=== PATIENT | female | born 1965 | race Caucasian/White ===

== ENCOUNTER 2017-05-31 20:18 | Emergency (ER) | payer OTHER, SELFPAY ==
[2017-05-31 20:38] VITALS: BP 128/70; PULSE 71; RESP 18; TEMP 36.1; O2SAT 95; BMI 41.4
--- NOTE | 2017-05-31 20:52 | HMH.EDUTC ---
[facility] [place] Disposition Clinical Impression: Headache Qualifiers: Headache type: other headache syndrome Qualified Code(s): G44.89 - Other headache syndrome Disposition: Home, Self-Care Condition on Discharge: Good Additional Instructions: Take over the counter Motrin and Tylenol as needed for pain If headache returns or worsens Follow up with family doctor If you began to have the worse headache of your life, go straight to ER Return if needed Referrals: Isabell Robertson [Primary Care Provider] - Time of Disposition: 21:03 Medical Decision Making Vital Signs: 05/31/17 20:38 Temperature 97 F L Temperature Source Temporal Artery Scan Pulse Rate [Right] 71 Respiratory Rate 18 Blood Pressure [Right Arm] 128/70 Blood Pressure Mean [Right Arm] 89 Blood Pressure Source [Right Arm] Automatic Cuff Blood Pressure Position [Right Arm] Sitting 02 Sat by Pulse Oximetry 95 Oxygen Delivery Method Room Air Orders (Tests/Meds): ED MEDICATIONS Discontinued Medications Generic Name Dose Route Start Last Admin Trade Name Freq PRN Reason Stop Dose Admin Ketorolac Tromethamine 60 mg 05/31/17 20:59 05/31/17 21:10 Toradol 60mg/2ml Vial IM 05/31/17 21:00 60 mg ONCE ONE Administration Metoclopramide HCl 10 mg 05/31/17 20:59 05/31/17 21:10 Metoclopramide 10mg Tablet PO 05/31/17 21:00 10 mg ONCE ONE Administration - Jordan Inquiry Pt receiving controlled substance: No Jordan was queried for this patient: No - Reevaluation(s) Time: 21:24 (Patient state that medicaiton helped with headache much better now rates headache a 3) [facility] [place] HPI - General Stated complaint: ANGEL, vomiting, diarrhea Mode of Arrival: Ambulatory Source of Information: Patient Limitations: No Limitations Description of Symptoms (Recalled from Triage Doc. by RN): HEADACHE, VOMITING HEENT Symptoms (Recalled from RN notes): No Resp Symptoms (Recalled from RN notes): No Skin Symptoms (Recalled from RN notes): No MS Symptoms (Recalled from RN notes): No Functional Status (Recalled from RN notes): N - History of Present Illness Provider Complaint: Patient state that she frequently has headaches States that she started getting a headache 2 days ago and now it has continued to get worse State that she has taken Tylenol but has not helped so she came in to see if she could get something for it - Related Data Allergies Allergy/AdvReac Type Severity Reaction Status Date / Time morphine [MORPHINE] Allergy Mild Verified 05/31/17 20:44 Sulfa (Sulfonamide Allergy Mild Verified 05/31/17 20:44 Antibiotics) [SULFA (SULFONAMIDE ANTIBIOTICS)] escitalopram [From LEXAPRO] Allergy Unknown UNKNOWN Verified 05/31/17 20:44 - Worker's Comp Is this a Worker's Comp case?: No H History I have reviewed the patient's past medical history: Yes - *Social History Smoking Status: Current every day smoker Tobacco Type: cigarettes Alcohol Intake: never - Psychiatric History Expresses thoughts of harming self/others: None Suicide Plan Description: No Plan ROS Obtained: Yes All systems reviewed & no additional complaints Physical Exam - General General appearance: alert, in no apparent distress - Eye Eye exam: Present: normal appearance, PERRL, EOMI - Neck Neck exam: Present: normal inspection, full ROM, trachea midline. Absent: meningismus, lymphadenopathy - Respiratory Respiratory exam: Present: normal lung sounds bilaterally. Absent: respiratory distress - Cardiovascular Cardiovascular exam: Present: regular rate, normal rhythm. Absent: JVD - Neurological Exam Neurological exam: Present: alert, oriented X3 - Psychiatric Psychiatric exam: Present: normal affect, normal mood - Other Other exam information: Patient state that she has a history of headaches State that this headache is like the others she has had State that when she cant get rid of it with Tylenol she comes in and gets a shot to help it to
--- NOTE | 2017-05-31 20:56 | ED_ITS ---
[facility] [place] Disposition Clinical Impression: Headache Qualifiers: Headache type: other headache syndrome Qualified Code(s): G44.89 - Other headache syndrome Disposition: Home, Self-Care Condition on Discharge: Good Additional Instructions: Take over the counter Motrin and Tylenol as needed for pain If headache returns or worsens Follow up with family doctor If you began to have the worse headache of your life, go straight to ER Return if needed Referrals: Isabell Robertson [Primary Care Provider] - Time of Disposition: 21:03 Medical Decision Making Vital Signs: 05/31/17 20:38 Temperature 97 F L Temperature Source Temporal Artery Scan Pulse Rate [Right] 71 Respiratory Rate 18 Blood Pressure [Right Arm] 128/70 Blood Pressure Mean [Right Arm] 89 Blood Pressure Source [Right Arm] Automatic Cuff Blood Pressure Position [Right Arm] Sitting 02 Sat by Pulse Oximetry 95 Oxygen Delivery Method Room Air Orders (Tests/Meds): ED MEDICATIONS Discontinued Medications Generic Name Dose Route Start Last Admin Trade Name Freq PRN Reason Stop Dose Admin Ketorolac Tromethamine 60 mg 05/31/17 20:59 05/31/17 21:10 Toradol 60mg/2ml Vial IM 05/31/17 21:00 60 mg ONCE ONE Administration Metoclopramide HCl 10 mg 05/31/17 20:59 05/31/17 21:10 Metoclopramide 10mg Tablet PO 05/31/17 21:00 10 mg ONCE ONE Administration - Jordan Inquiry Pt receiving controlled substance: No Jordan was queried for this patient: No - Reevaluation(s) Time: 21:24 (Patient state that medicaiton helped with headache much better now rates headache a 3) [facility] [place] HPI - General Stated complaint: ANGEL, vomiting, diarrhea Mode of Arrival: Ambulatory Source of Information: Patient Limitations: No Limitations Description of Symptoms (Recalled from Triage Doc. by RN): HEADACHE, VOMITING HEENT Symptoms (Recalled from RN notes): No Resp Symptoms (Recalled from RN notes): No Skin Symptoms (Recalled from RN notes): No MS Symptoms (Recalled from RN notes): No Functional Status (Recalled from RN notes): N - History of Present Illness Provider Complaint: Patient state that she frequently has headaches States that she started getting a headache 2 days ago and now it has continued to get worse State that she has taken Tylenol but has not helped so she came in to see if she could get something for it - Related Data Allergies Allergy/AdvReac Type Severity Reaction Status Date / Time morphine [MORPHINE] Allergy Mild Verified 05/31/17 20:44 Sulfa (Sulfonamide Allergy Mild Verified 05/31/17 20:44 Antibiotics) [SULFA (SULFONAMIDE ANTIBIOTICS)] escitalopram [From LEXAPRO] Allergy Unknown UNKNOWN Verified 05/31/17 20:44 - Worker's Comp Is this a Worker's Comp case?: No H History I have reviewed the patient's past medical history: Yes - *Social History Smoking Status: Current every day smoker Tobacco Type: cigarettes Alcohol Intake: never - Psychiatric History Expresses thoughts of harming self/others: None Suicide Plan Description: No Plan ROS Obtained: Yes All systems reviewed & no additional complaints Physical Exam - General General appearance: alert, in no apparent distress - Eye Eye exam: Present: normal appearance, PERRL, EOMI
== END 2017-05-31 21:25 | disposition home or self-care (01) ==
PROVIDERS: Emergency Provider Nurse Practitioner; Family Provider Family Medicine Geriatric Medicine; PCP Family Medicine Geriatric Medicine
DX: G44.89 Other headache syndrome (principal); F17.210 Nicotine dependence, cigarettes, uncomplicated; Z88.2 Allergy status to sulfonamides; Z88.6 Allergy status to analgesic agent
CPT/HCPCS: 96372; 99202